=== PATIENT | female | born 2005 | race Caucasian/White ===

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

== ENCOUNTER 2024-01-22 00:51 | Emergency (ER) | payer OTHER ==
[~2024-01-22] VITALS: Ht 172.7 cm; Wt 49.0 kg
[~2024-01-22 00:51] MED LIST changes: +SILVADENE20 GM TOP
[2024-01-22] MEDS ORDERED: BACITRACIN28.4 GM TOP (01:14)
[2024-01-22] MEDS ORDERED: BACITRAYCIN PLU28 G1 TOP (01:18)
[2024-01-22 01:30] VITALS: BP 115/90
== END 2024-01-22 01:30 | disposition home or self-care (01) ==
LOC: ED 00:51
DX: T23.251A Burn of second degree of right palm, initial encounter (principal); X02.0XXA Exposure to flames in controlled fire in building or structure, initial encounter; Z88.5 Allergy status to narcotic agent
CPT/HCPCS: 99283

== ENCOUNTER 2024-06-28 08:20 | Day surgery (SDC) | payer OTHER ==
[2024-06-19 09:24] VITALS: BP 100/59
[~2024-06-28] VITALS: Ht 172.7 cm; Wt 47.7 kg
[~2024-06-28 08:20] MED LIST changes: +BACITRACIN28.4 GM TOP; +BACITRAYCIN PLU28 G1 TOP; +IBLOOD GLUCOSE TEST STRIP 1 EA TEST VI PRN; +LACTATED RINGER'S 1,000 ML IV SCH; +LIDOCAINE HCL 1% 5 ML SDV INJ ONE; +LIDOCAINE HCL 2% 5 ML SDV ONE; +MIDAZOLAM HCL 5 MG/5 ML VIAL IV PRN; +fentaNYL citrate 100 MCG/2 ML VIAL IV PRN; +propofoL 200 MG/20 ML VIAL ONE
[2024-06-28 08:30] VITALS: BP 122/70
--- NOTE | 2024-06-28 08:42 | NUR ---
MOM ACCOMPANYING PT.
--- NOTE | 2024-06-28 09:29 | NUR ---
06/28/24 0929 Demi Kitchen 0914-PT ARRIVES TO PACU RESTING SEMI FOWLERS, PT NOT RESPONSIVE TO STIMULI, VSS ON 2L VIA NC, RR EVEN AND UNLABORED. 0920-PT AWAKENS ON OWN, PT TITRATED TO RA, VS REMAIN STABLE. PT DENIES PAIN OR NAUSEA, BUT C/O DIZZINESS.
[2024-06-28 09:39] VITALS: BP 111/72
--- NOTE | 2024-06-28 10:37 | OR ---
[facility] [address] [place], [place] [address] Signed DATE OF OPERATION: 06/28/2024 SURGEON: Baldemar Rodríguez MD PREOPERATIVE DIAGNOSES: 1. Epigastric abdominal pain. 2. Weight loss. 3. Anorexia. 4. Gastroesophageal reflux disease. POSTOPERATIVE DIAGNOSIS: Unremarkable upper endoscopy. PROCEDURE: Esophagogastroduodenoscopy with CLOtest and biopsies of the antrum. ESTIMATED BLOOD LOSS: None. INDICATIONS: Amarilys is a 18-year-old young lady, asked to see me for upper endoscopy. She has had trouble with epigastric abdominal pain, anorexia, and weight loss. It has been bothering her for about six months. Apparently, she has some level of acid reflux. She said the omeprazole and sucralfate helped only a little bit. She also mentioned her nonepileptic seizures. She was initially diagnosed by a pediatric neurologist in [place], [place]. Last year she was working with [facility] [employer] [facility]3]. Apparently, this was over the phone. There was some discussion that the diagnosis was confirmed, but the exact results are not certain to Amarilys. She had an oral surgeon and was not willing to put her sleep in the office because of her history of seizures. Therefore, she wanted to see our anesthesia providers preoperatively. That note has been reviewed. It was felt she would probably be safe to have that done here in the hospital setting with appropriate monitoring and staff available. She had come to the office with her mother. However, she lives with her aunt. In the office, I gave her a pamphlet on upper endoscopy. We had reviewed the nature of the test. There is risk including, but not limited to gas bloating, crampy abdominal pain, bleeding, perforation requiring surgery, and missed diagnosis. We also reviewed the need for the monitored anesthesia care given her history as described above. She understands an adult person has to take her home afterwards. She had expressed understanding and wished to proceed. Electronically Signed By: BALDEMAR RODRÍGUEZ MD 06/28/24 [facility] PATIENT NAME: AMARILYS YEBOAH OPERATIVE REPORT DATE OF : 04 REPORT #: [id number] PHYSICIAN: BALDEMAR RODRÍGUEZ MD PCP: [facility] REPORT IS CONFIDENTIAL AND NOT TO BE RELEASED WITHOUT AUTHORIZATION [facility] [address] [place] [id number] Signed PROCEDURE IN DETAIL: Amarilys was taken into our endoscopy room and placed in the supine semi-recumbent position. She was placed under propofol infusion with monitored anesthesia care per our nurse senior water resources engineer. A bite block was utilized for the case. The adult gastroscope was introduced and advanced all the way out into the third portion of the duodenum without difficulty. The duodenum and pyloric channel, stomach were unremarkable. We went and took a biopsy of the antrum for CLOtest as well as pathologic review. Upon retroflexion of scope we really could not appreciate any hiatal hernia. The scope was withdrawn up through the area of the GE junction, which was compliant without stricture. There were no gastric or esophageal varices. There was no disruption to her Z-line. There was no Vargas's mucosa. There was no distal esophagitis. The middle and upper esophagus were unremarkable. After this, the gas was suctioned out and the gastroscope removed. Amarilys tolerated the procedure quite well. RECOMMENDATIONS: Amarilys is welcome to follow up my office in 7 to 14 days to review her biopsy results. Baldemar Rodríguez MD [facility] /[id number] cc: [facility] Baldemar Rodríguez MD Copies: [facility] BALDEMAR RODRÍGUEZ MD ~ Electronically Signed By: BADLEMAR RODRÍGUEZ MD 06/28/24 1037 PATIENT NAME: AMARILYS YEBOAH OPERATIVE REPORT DATE OF : [birth year] REPORT #: [id number] PHYSICIAN: BALDEMAR RODRÍGUEZ MD PCP: [facility] REPORT IS CONFIDENTIAL AND NOT TO BE RELEASED WITHOUT AUTHORIZATION
--- NOTE | 2024-07-02 20:06 | PATH ---
[facility] [address] [facility] [place], [place] [address] Signed SPECIMEN(S): A ANTRUM/PYLORUS BIOPSY SPECIMEN SOURCE: A. ANTRUM/PYLORUS BIOPSY CLINICAL HISTORY: Pre: Epigastric abdominal pain, anorexia. Post: Unremarkable FINAL PATHOLOGIC DIAGNOSIS: Antrum/pylorus biopsy: - Diffuse chronic gastritis. - A Helicobacter pylori immunostain is positive for organisms. JVR:smn MICROSCOPIC EXAMINATION: Histologic sections of all submitted blocks are examined by light microscopy. These findings, together with the gross examination, support the pathologic diagnosis. A Helicobacter pylori immunostain is performed with appropriate positive and negative controls on block A1 and is positive for organisms. JVR:smn GROSS DESCRIPTION: The specimen, labeled and designated "Nix, S, antrum/pylorus biopsy," is received in formalin and consists of one conklin soft tissue fragment, 0.7 cm. Entirely submitted in (A1). AB (under the direct supervision of a pathologist) The Gross Description was prepared using a voice recognition system. The report was reviewed for accuracy; however, sound-alike word errors, addition and/or deletions may occur. If there is any question about this report, please contact Client Services. ADDITIONAL NOTES: Immunohistochemical and/or in situ hybridization studies were performed on this case with the appropriate positive controls that react as expected. This test was developed and its performance characteristics determined by [employer] ([place] It has not been cleared or approved by the U.S. Food and Drug Administration. The FDA has determined that such clearance or approval is not necessary. This test is used for clinical purposes. It should not be regarded as investigational or for research. [employer] [place] is certified under the PATIENT NAME: ALIREZA YEBOAH PATHOLOGY DATE OF : 04 REPORT #: [id number] PHYSICIAN: JENISE CARTY PCP: [facility] REPORT IS CONFIDENTIAL AND NOT TO BE RELEASED WITHOUT AUTHORIZATION [facility] [address] [place], [place] [address] Signed Clinical Laboratory Improvement Amendments of 1988 (CLIA) as qualified to perform high complexity clinical laboratory testing. This assay has not been validated for specimens that have been decalcified. PERFORMING LABORATORY: Technical component was performed by [employer] ([place]), [address] [place] [address] (CLIA# [id number]). Professional interpretation was performed by [email or web address], [address] [place] [id number] (CLIA#: [id number]). Diagnostician: Joseph Shukla MD Pathologist Electronically Signed 07/02/2024 Copies: ~ PATIENT NAME: ALIREZA YEBOAH PATHOLOGY DATE OF : 04 REPORT #: [id number] PHYSICIAN: JENISE PATHOLOGY PCP: [facility] REPORT IS CONFIDENTIAL AND NOT TO BE RELEASED WITHOUT AUTHORIZATION
== END 2024-06-28 09:45 | disposition home or self-care (01) ==
LOC: DS 08:20
PROVIDERS: ATTEND Colon & Rectal Surgery
PROC: 0DB68ZX Excision of Stomach, Via Natural or Artificial Opening Endoscopic, Diagnostic (ICD-10-PCS; principal; 2024-06-28 08:40)
DX: K29.50 Unspecified chronic gastritis without bleeding (principal); B96.81 Helicobacter pylori [H. pylori] as the cause of diseases classified elsewhere; K21.9 Gastro-esophageal reflux disease without esophagitis; F12.10 Cannabis abuse, uncomplicated; F44.5 Conversion disorder with seizures or convulsions; F44.9 Dissociative and conversion disorder, unspecified; F41.9 Anxiety disorder, unspecified; H52.52 Paresis of accommodation; Z79.899 Other long term (current) drug therapy
CPT/HCPCS: 00813; 36415; 84703; 87077; J2003; J2704; J7121

== ENCOUNTER 2024-08-03 13:48 | Emergency (ER) | payer OTHER ==
[~2024-08-03] VITALS: Ht 172.7 cm; Wt 49.9 kg
[~2024-08-03 13:48] MED LIST changes: -IBLOOD GLUCOSE TEST STRIP 1 EA TEST VI PRN; -LACTATED RINGER'S 1,000 ML IV SCH; -LIDOCAINE HCL 1% 5 ML SDV INJ ONE; -LIDOCAINE HCL 2% 5 ML SDV ONE; -MIDAZOLAM HCL 5 MG/5 ML VIAL IV PRN; -fentaNYL citrate 100 MCG/2 ML VIAL IV PRN; -propofoL 200 MG/20 ML VIAL ONE
[2024-08-03] MEDS ORDERED: OMEPRAZOLE20 MG PO (14:04)
[2024-08-03] MEDS ORDERED: CLARITHROMYCIN500 M1 PO (14:05)
[2024-08-03] MEDS ORDERED: AMOXICILLIN500 MG PO (14:05)
[2024-08-03 14:07] LABS: BASOPHILS 0.6 % (0-2); EOSINOPHILS 1.8 % (0-6); HEMATOCRIT 40.8 % (35.0-50.0); HEMOGLOBIN 13.8 g/dL (12.0-18.0); LYMPHOCYTES 21.9 % (24-44); MCH 31.6 (27-36); MCHC 33.7 g/dl (30-36); MCV 93.7 fl (81-99); MONOCYTES 5.4 % (0-12); NEUTROPHILS 70.3 % (39-80); PLATELET COUNT 167 K/uL (140-440); RBC 4.35 M/ul (4.3-5.7); RDW 13.5 (10.5-15.0)
[2024-08-03 14:16] LABS: ALBUMIN 4.4 g/dL (3.4-5.0); ALBUMIN/GLOBULIN RATIO 1.29 (1.1-2.4); BUN/CREATININE RATIO 10.95 (6.0-28.6); CALCIUM 9.6 mg/dL (8.5-10.1); CREATININE, SERUM 0.73 mg/dL (0.55-1.02); PROTEIN, TOTAL 7.8 g/dL (6.4-8.2)
[2024-08-03 15:29] LABS: BILIRUBIN, URINE NEGATIVE (negative); BLOOD/HGB, URINE NEGATIVE (Negative); KETONE, URINE NEGATIVE (Negative); LEUK ESTERASE, URINE NEGATIVE (negative); NITRITE, URINE NEGATIVE (negative); PH, URINE 7.5 (5-7)
[2024-08-03 15:38] LABS: BACTERIA, URINE NONE SEEN /hpf (negative); CASTS, URINE NONE SEEN \\lpf; CRYSTALS, URINE NONE SEEN (0-1+); EPITHELIAL CELLS, URINE SQUAMOUS 1+ /lpf (0-1+); RED BLOOD CELLS, URINE 0-1 /hpf (0-5); WHITE BLOOD CELLS, URINE 0-1 /HPF (0-5)
[2024-08-03 15:39] LABS: COLLECTION TYPE, URINE CLEAN CATCH; REFLEX CULTURE, URINE No (No)
[2024-08-03 16:18] VITALS: BP 122/74
--- NOTE | 2024-08-03 22:02 | EKG ---
[facility] [address] [employer] [place] [address] Signed Sinus bradycardia Otherwise normal ECG When compared with ECG of 16-DEC-2021 18:34, Vent. rate has decreased BY 28 BPM QT has shortened Confirmed by Ritesh Akhtar MD () on 08/03/2024 10:02:34 PM Electronically Signed By: RITESH AKHTAR MD 08/03/242201 PATIENT NAME: ALIREZA YEBOAH Electrocardiogram DATE OF : 04 PHYSICIAN: RITESH AKHTAR MD REPORT #: [id number] REPORT IS CONFIDENTIAL AND NOT TO BE RELEASED WITHOUT AUTHORIZATION
== END 2024-08-03 16:19 | disposition home or self-care (01) ==
LOC: ED 13:48
PROVIDERS: Emergency Medicine
DX: R00.2 Palpitations (principal); R20.2 Paresthesia of skin; Z88.5 Allergy status to narcotic agent; Z79.2 Long term (current) use of antibiotics; Z79.899 Other long term (current) drug therapy
CPT/HCPCS: 36415; 80053; 81001; 85025; 93005; 93010; 99285